=== PATIENT | female | born 1980 | race Two or more races ===

== ENCOUNTER 2021-05-04 12:51 | Outpatient (REF) | payer OTHER, SELFPAY ==
--- NOTE | ~2021-05-04 | XR_ITS ---
EXAMINATION: XR WRIST WITH SCAPHOID, RIGHT CLINICAL INFORMATION: Pain in right wrist. COMPARISON: None TECHNIQUE: 4 views. FINDINGS: There is no visible acute fracture, dislocation or subluxation. The radiocarpal, intercarpal and carpometacarpal joint space is maintained normal. No visible fracture or bony abnormality seen. There is no subluxation. There is minimal ulnar negative variance. XR/XR wrist RT w scaphoid IMPRESSION: No acute fracture or bony abnormality seen in right wrist.
== END 2021-05-04 12:52 | disposition home or self-care (01) ==
LOC: HO.XRAY 12:51
PROVIDERS: Visit Provider Hospitalist
DX: M25.531 Pain in right wrist (principal)
CPT/HCPCS: 73110

== ENCOUNTER 2021-10-01 10:11 | Outpatient (REF) | payer OTHER, SELFPAY ==
[2021-10-01 11:50] LABS: Hemoglobin 11.4 g/dl (12.0-16.0); Mean Corpuscular HGB Conc 31.7 g/dl (31.0-35.0); Mean Corpuscular Hemoglobin 26.9 pg (27.0-33.0); Mean Corpuscular Volume 84.9 fL (80.0-98.0); Mean Platelet Volume 10.6 fL (9.4-12.3); Platelet Count 227 X10*3/uL (160-400); Red Blood Count 4.24 X10*6/uL (4.20-5.50); Red Cell Distribution Width 12.3 % (11.0-16.0); White Blood Count 8.4 X10*3/uL (4.8-10.8)
[2021-10-01 12:00] LABS: Alanine Aminotransferase 8 U/L (0-31); Albumin Level 4.3 g/dL (3.5-5.0); Alkaline Phosphatase 47 U/L (39-117); Anion Gap 11 (12-20); Aspartate Amino Transferase 12 U/L (5-31); Bilirubin Total 0.5 mg/dL (0.0-1.0); Blood Urea Nitrogen 12 mg/dL (9-16); Calcium 8.9 mg/dL (8.4-10.2); Carbon Dioxide 26 mmol/L (22-29); Chloride 104 mmol/L (96-108); Cholesterol 175 mg/dL; Estimated Glomerular Filt Rate > 60; Glucose Fasting 92 mg/dL (60-99); HDL Cholesterol 37 mg/dL; LDL Cholesterol Calculated 111 mg/dl; Sodium 137 mmol/L (135-145); Total Protein 7.4 g/dL (6.5-8.0); Triglycerides 138 mg/dL
[2021-10-01 12:22] LABS: TSH reflex Free T4 1.59 uIU/mL (0.32-4.0)
== END 2021-10-01 10:12 | disposition home or self-care (01) ==
LOC: HO.WFDLDS 10:11
PROVIDERS: Visit Provider Hospitalist
DX: Z00.00 Encounter for general adult medical examination without abnormal findings (principal)
CPT/HCPCS: 36415; 80053; 80061; 84443; 85027

== ENCOUNTER 2022-11-16 10:37 | Outpatient (REF) | payer OTHER, SELFPAY ==
[2022-11-16 14:47] LABS: Hematocrit 36.5 % (37.0-47.0); Hemoglobin 11.6 g/dl (12.0-16.0); Mean Corpuscular HGB Conc 31.8 g/dl (31.0-35.0); Mean Corpuscular Hemoglobin 26.9 pg (27.0-33.0); Mean Corpuscular Volume 84.7 fL (80.0-98.0); Mean Platelet Volume 10.8 fL (9.4-12.3); Platelet Count 243 X10*3/uL (160-400); Red Blood Count 4.31 X10*6/uL (4.20-5.50); Red Cell Distribution Width 12.3 % (11.0-16.0); White Blood Count 7.2 X10*3/uL (4.8-10.8)
[2022-11-16 15:01] LABS: Appearance Urine Clear; Color Urine Yellow; Glucose Urine UA Negative (Negative); Leukocyte Esterase Urine Negative (Negative); Nitrite Urine Negative (Negative); Specific Gravity - Urine 1.015 (1.005-1.025); Urine Blood Negative (Negative); Urine Ketones Negative (Negative); Urine Protein Negative (Neg-Trace)
[2022-11-16 15:07] LABS: Alanine Aminotransferase 9 U/L (0-31); Albumin Level 4.3 g/dL (3.5-5.0); Alkaline Phosphatase 48 U/L (39-117); Anion Gap 12 (12-20); Aspartate Amino Transferase 14 U/L (5-31); Bilirubin Total 0.4 mg/dL (0.0-1.0); Blood Urea Nitrogen 13 mg/dL (9-16); Calcium 9.2 mg/dL (8.4-10.2); Carbon Dioxide 25 mmol/L (22-29); Chloride 105 mmol/L (96-108); Cholesterol 191 mg/dL; Estimated Glomerular Filt Rate > 60; Glucose Fasting 89 mg/dL (60-99); HDL Cholesterol 40 mg/dL; LDL Cholesterol Calculated 120 mg/dl; Sodium 138 mmol/L (135-145); Total Protein 7.7 g/dL (6.5-8.0); Triglycerides 159 mg/dL
[2022-11-16 15:25] LABS: TSH reflex Free T4 1.79 uIU/mL (0.32-4.0)
== END 2022-11-16 10:38 | disposition home or self-care (01) ==
LOC: HO.WFDLDS 10:37
PROVIDERS: Visit Provider Hospitalist
DX: Z00.00 Encounter for general adult medical examination without abnormal findings (principal)
CPT/HCPCS: 36415; 80053; 80061; 81003; 84443; 85027

== ENCOUNTER 2022-12-13 15:47 | Outpatient (AMB) | payer OTHER, SELFPAY ==
--- NOTE | 2022-12-13 15:59 | A.OFFPC_ITS ---
Vital Signs 12/13/22 16:02 Height 5 ft 1 in Weight 144 lb 2 oz BMI 27.2 BP 110/74 Blood Pressure Location Rt brachial Position Sitting Respiration 12 Pulse 75 Pulse Source Pulse Oximeter Temp 97.9 F Temp Source Temporal Artery Scan Pulse Oximetry (%) 99 Oxygen Delivery Method Room Air Intake Visit Reasons: letter for housing Intake Note: Patient states that patient has very poor hearing in right ear. Patient states that patient hasn't been able to lay or sleep on right side due to ear pain. Patient states that the pain goes straight into her head. Patient's states that patient is due to get surgery in right ear and would like accommodations due to stating that new living situation has alot of flights of stairs and patient will not be able to mobilize in the house. Patient is complaining of pain in only right side of head. Bill Adjuster Required: Yes Bill Adjuster Name: Ermias ( Spouse) Accompanied by: Spouse Allergies No Known Allergies Allergy (Verified 12/13/22 16:31) Medication List - Last Reconciled 12/13/22 by Chriss Benavides CNP ibuprofen 800 mg PO Q8H PRN Tobacco use date assessed: 07/27/22 Dental Screening Dental Screen Date: 12/13/22 Did you have a dental visit in the last 12 months?: Yes Did you have a dental problem in the last 6 months where you did not have access to dental care?: No Was dental information given to patient?: Patient has dentist HPI HPI Comments History of Present Illness Details 42-year-old female, accompanied by karmen kenan, presents with request for reasonable house and accommodation. She reports continued right ear pain. She reports history of drainage from the right ear in 2006 for which she had a surgical procedure then. She no longer has discharge from the ear but continues to experience intermittent pain with associated pain to the left side of her head. She notes she has a follow-up appointment scheduled with ENT in February. She states her new apartment has multiple stairs and experiences increase ear pain when climbing stairs. She was treated for left otitis media in July and referred to ENT. [facility] Medical History (Updated 12/13/22 @ 16:48 by Chriss Benavides CNP) No pertinent past medical history Surgical History History of ear surgery Hx of section Family History Father No problems noted. Mother No problems noted. Social History Housing: Apartment Patient Tobacco Use Status: Never used Tobacco e-Cigarette/Vaping Use: Never Used service: No Current occupational status: unemployed Cognitive needs: No Hearing needs: Yes Vision needs: No Questionnaire Thrive Questionnaire Date Thrive assessed: 06/02/22 DIONISIO-7 AMB Questionnaire DIONISIO-7 Date DIONISIO - 7 assessed: 06/02/22 Source: Developed by Drs. Aston Chua, Rema Dutton, Charles Yang and colleagues, with an educational ginny from [employer]. Review of Systems Const Details: Const Denies chills, Denies fatigue, Denies fever(s), Denies headache(s) and Denies weakness ENT Reports as per HPI Card Denies chest pain, Denies lightheadedness, Denies dyspnea and Denies other (Palpitations) Resp Denies cough, Denies dyspnea, Denies wheezing and Denies other ( shortness of breath) GI Denies abdominal pain, Denies melena, Denies hematochezia, Denies change in bowel habits, Denies dyspepsia and Denies nausea Denies hematuria and Denies dysuria Musc Denies abnormal gait, Denies myalgias, Denies arthralgias, Denies numbness and Denies tingling Skin/Breast Denies rash, Denies unusual bruising and Denies wounds Neuro Denies abnormal gait, Denies dizziness, Denies headache(s), Denies memory loss, Denies numbness, Denies Sensory deficit (Neuro), Denies tingling and Denies weakness Psych Denies anxiety, Denies depression, Denies memory loss Endo Denies cold intolerance, Denies fatigue, Denies heat intolerance, Denies polydipsia and Denies polyuria Aller/Immun Denies wheezing Physical exam (Primary Care) Vital Signs: Last Vital Signs Temp 97.9 F 12/13/22 16:02 Pulse 75 12/13/22 16:02 Resp 12 12/13/22 16:02 BP 110/74 12/13/22 16:02 Pulse Ox 99 12/13/22 16:02 Oxygen Delivery Method Room Air 12/13/22 16:02 BMI result Body Mass Index 27.2 Tobacco/Smoking Status: Tobacco use Status Tobacco use date assessed 07/27/22 12/13/22 16:01 Patient Tobacco Use Status Never used Tobacco 12/13/22 16:01 e-Cigarette/Vaping Use Never Used 12/13/22 16:01 Thrive Assessment: Date of Thrive Assessment Date Thrive assessed 06/02/22 12/13/22 16:01 Const Other: General: no acute distress and well developed Nutritional Appearance: well nourished Orientation/consciousness: patient oriented x3 HENMT Head is normocephalic Bilateral ear canal and TM are normal Nasal turbinates and oropharynx are pink and moist Sinuses are nontender with palpation No auricular or cervical lymphadenopathy Eyes General: appearance normal, both eyes and all related structures Pupils: Equal, round and reactive pupils present EOM: EOMs intact bilaterally Resp Effort & Inspection: normal respiratory effort Auscultation: clear to auscultation bilaterally Cardio Rate: regular rate Rhythm: regular rhythm Heart sounds: S1 normal heart sound present, S2 normal heart sound present, no gallops, no murmurs and no rubs GI Palpation (GI): No Abdominal aortic bruit present, Soft to palpation, nontender, No hepatosplenomegaly present and No Rebound tenderness present Auscultation: normal bowel sounds General: Yes no CVA tenderness Back/Spine/Pelvis Back: no CVA tenderness Cervical Spine: cervical ROM normal and No Cervical spine tenderness Thoracic/Lumbar Spine: thoraco-lumbar ROM normal, No pain with thoraco-lumbar ROM, No thoracic spinal tenderness and No lumbar spinal tenderness Extrem General: Yes normal to inspection, No edema and No calf tenderness Skin General: warm and dry. Normal skin color. Normal skin turgor Lesions: no lesions Rashes: no rashes Trauma: no lacerations or abrasions Wounds: no wounds Nails: normal Neuro General: patient oriented x3, gait normal and no focal neuro deficit Cranial nerves: Yes Equal, round and reactive pupils present Cognition (Neuro): normal cognition Gait exam (Neuro): Normal gait present Sensory Exam: No Sensory deficit (Neuro) Psych Appearance: grossly normal Affect: normal affect Attitude: cooperative Thought process: Normal thought process present Assessment and Plan Assessment & Plan (1) Chronic right ear pain: Code(s): H92.01 - Otalgia, right ear; G89.29 - Other chronic pain Plan: Normal ear canal and TM Normal hearing May take ibuprofen or Tylenol for pain or discomfort Follow-up with ENT as planned I consulted with Dr. Oglesby regarding the patient's request for a letter for housing accommodation. Housing accommodation letter cannot be justified with the patient's current complaints. However, the patient may discuss this request with ENT when she follows up. Patient's and her informed about the plan. Return with worsening or new symptoms Verbalized understanding and agreed with treatment plan. Interpretation by the patient's per patient's preference Coding Level of Care Code Est Pt Level 3 (39486) Diagnoses Chronic right ear pain H92.01; G89.29
[2022-12-13 16:02] VITALS: BP 110/74; PULSE 75; RESP 12; TEMP 36.6; O2SAT 99; BMI 27.2
== END 2022-12-13 16:46 | disposition home or self-care (01) ==
PROVIDERS: PCP Hospitalist; Visit Provider Nurse Practitioner Family
DX: H92.01 Otalgia, right ear (principal); G89.29 Other chronic pain
CPT/HCPCS: 99213